=== PATIENT | female | born 1980 | race Two or more races ===

== ENCOUNTER 2021-01-26 22:00 | Emergency (ER) | payer MEDICAID ==
[2021-01-26 22:35] LABS: RAPID STREP SCREEN Negative (Negative)
--- NOTE | 2021-01-26 23:19 | ED Physician Documentation ---
PD HPI URI - Stated complaint Stated Complaint: TIGHTNESS IN THROAT/wrist injury - Chief complaint Chief Complaint: Heent - History obtained from History obtained from: Patient - History of Present Illness Timing - onset: Today Timing duration: Days (1) Timing details: Abrupt onset, Still present Associated symptoms: Chills, Nasal congestion, Dry cough, Dyspnea. No: Sore throat (but feeling of irritation in throat.) Contributing factors: Unimmunized. No: Sick contact, Travel, Immunocompromised Similar symptoms before: Has not had sx before Recently seen: Not recently seen Review of Systems Constitutional: reports: Chills. denies: Fever Nose: reports: Congestion. denies: Rhinorrhea / runny nose Cardiac: denies: Chest pain / pressure Respiratory: reports: Dyspnea, Cough GI: denies: Nausea, Vomiting, Diarrhea Skin: denies: Rash, Lesions Musculoskeletal: reports: Other (thumb base pain for a month or more are twisting injury sliping on stairs. 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 - Present Medications Home Medications: Ambulatory Orders Medication Instructions Recorded Confirmed Albuterol Sulfate [Proair Hfa 1 - 2 puffs INH Q4H PRN 01/26/21 01/26/21 Inhaler] dexAMETHasone [Decadron] 4 mg PO DAILY #5 tablet 01/26/21 - Allergies Allergies/Adverse Reactions: Allergies Allergy/AdvReac Type Severity Reaction Status Date / Time No Known Drug Allergies Allergy Verified 01/26/21 22:19 - Social History Does the pt smoke?: Yes Smoking Status: Current every day smoker Does the pt drink ETOH?: No Does the pt have substance abuse?: No - Immunizations Immunizations are current?: Yes - POLST Patient has POLST: No PD ED PE NORMAL - Vitals Vital signs reviewed: Yes - General General: Alert and oriented X 3, No acute distress, Well developed/nourished - HEENT HEENT: Moist mucous membranes, Pharynx benign (no redness but with mild swelling of uvula. No exudate. ) - Neck Neck: Supple, no meningeal sign, No adenopathy - Cardiac Cardiac: RRR, No murmur - Respiratory Respiratory: Clear bilaterally - Abdomen Abdomen: Soft, Non tender - Derm Derm: Normal color, Warm and dry, No rash - Neuro Neuro: Alert and oriented X 3, Normal speech Results - Vitals Vitals: Oxygen O2 Source Room air - Labs Labs: Microbiology 01/26/21 22:23 Group A Strep Throat Culture - Final Throat MIXED OROPHARYNGEAL LEYDA PRESENT. NO BETA STREP PRESENT IN CULTURE. Laboratory Tests 01/26/21 22:23 Group A Strep Rapid Negative - Rads (name of study) thumb Radiology: Prelim report reviewed (no fractures), See rad report PD MEDICAL DECISION MAKING - ED course Complexity details: reviewed results, considered differential, d/w patient Departure - Departure Disposition: Home, Self Care Clinical Impression: Thumb sprain Qualifiers: Encounter type: initial encounter Sprain of finger site: metacarpophalangeal joint Laterality: left Qualified Code(s): S63.642A - Sprain of metacarpophalangeal joint of left thumb, initial encounter Pharyngitis Qualifiers: Pharyngitis/tonsillitis etiology: unspecified etiology Qualified Code(s): J02.9 - Acute pharyngitis, unspecified Condition: Stable Record reviewed to determine appropriate education?: Yes Instructions: ED Pharyngitis Viral Report Pending, ED Sprain Finger Follow-Up: Martin Szymanski MD [Provider Admit Priv/Credential] - Prescriptions: dexAMETHasone [Decadron] 4 mg PO DAILY #5 tablet Comments: Your rapid strep test is negative. The throat culture will result in a day or 2 to evaluate for other bacterial causes than group A strep. We will call you if we need to add antibiotics based on the results. Otherwise presume a viral cause and we can treat the inflammation in the throat with some steroids daily for the next few days. Continue with some Benadryl periodically and liquid may help with some local effect in the throat as well as the antihistamine effect for congestion. Add Tylenol if needed for pains or Advil. For the thumb, use the thumb and wrist splint for the next 1 to 2 weeks. See if the mobility of it allows for better healing. The steroid anti-inflammatory may benefit the thumb as well as the throat over the next several days. Follow-up with orthopedics, Dr. Thomas, in about 1-1/2 weeks to see how much improved you got in with the splint and if any further treatment or diagnostics are needed. Call tomorrow for an appointment. Discharge Date/Time: 01/27/21 00:01
--- NOTE | 2021-01-26 23:23 | XRAY Report ---
PROCEDURE: Hand 3 View LT INDICATIONS: fall/injured L thumb/c/o pain TECHNIQUE: 3 views of the hand(s) acquired. COMPARISON: None FINDINGS: Bones: No fractures or dislocations. No suspicious bony lesions. Soft tissues: No suspicious soft tissue calcifications. IMPRESSION: Intact left hand. Specifically, no evidence of injury to the first digit. Reviewed by: Carmen Blake MD on 01/26/2021 11:21 PM PDT Approved by: Carmen Blake MD on 01/26/2021 11:21 PM PDT Station ID: [id number]
[2021-01-26] MEDS ORDERED: diphenhydrAMINE ELIXIR 25 MG/10 ML UDC PO STA (23:40)
[2021-01-26] MEDS ORDERED: CHERRY SYRUP 10 ML UDC PO ONE (23:40)
[2021-01-26] MEDS ORDERED: ACETAMINOPHEN 325 MG TABLET PO STA (23:40)
[2021-01-26] MEDS ORDERED: DEXAMETHASONE 10 MG/ML VIAL PO STA (23:40)
[2021-01-26 23:52] VITALS: BP 122/76
== END 2021-01-27 00:01 | disposition home or self-care (01) ==
LOC: ED 22:00
DX: S63.642A Sprain of metacarpophalangeal joint of left thumb, initial encounter (principal); W10.9XXA Fall (on) (from) unspecified stairs and steps, initial encounter; J02.9 Acute pharyngitis, unspecified; F17.200 Nicotine dependence, unspecified, uncomplicated
CPT/HCPCS: 73130; 87070; 87430; 99283; 99284; A9270

== ENCOUNTER 2021-02-11 12:48 | Emergency (ER) | payer MEDICAID ==
--- NOTE | 2021-02-11 13:18 | ED Physician Documentation ---
PD HPI ABD PAIN - Stated complaint Stated Complaint: SWALLOWED FB - Chief complaint Chief Complaint: General - History obtained from History obtained from: Patient - History of Present Illness Timing - onset: How many minutes ago (45), Today Timing - duration: Minutes (45) Timing - details: Abrupt onset, Now resolved (she had several small nails held i n her lips/mouth while hammering overhead. She opened her mouth unintendedly and the nails fell into her throat. She felt discomfort upper esophagus and coughed and spat some sputum. She thought had 3-4 nails in mouth and only noted one spat out. scratchy throat.) Quality: Sharp (feeling of sharp scratchy feeling in throat with swallowing.) Location: Other (upper esophagus area sharp with swallowing, improving. Also feeling of some epigastric aching feeling.) Radiation: No: Chest, Lower back, Upper back Worsened by: Other (swallowing saliva.) Associated symptoms: No: Fever, Nausea, Vomiting Similar symptoms before: Has not had sx before Recently seen: Not recently seen Review of Systems Constitutional: denies: Fever, Chills Nose: denies: Rhinorrhea / runny nose, Congestion Respiratory: denies: Cough GI: denies: Vomiting, Diarrhea Neurologic: denies: Generalized weakness, Near syncope PD PAST MEDICAL HISTORY - Past Medical History Past Medical History: Yes Cardiovascular: None Respiratory: Asthma Neuro: None Endocrine/Autoimmune: None - Past Surgical History 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, 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 - Present Medications Home Medications: Ambulatory Orders Medication Instructions Recorded Confirmed Albuterol Sulfate [Proair Hfa 1 - 2 puffs INH Q4H PRN 01/26/21 02/11/21 Inhaler] - Allergies Allergies/Adverse Reactions: Allergies Allergy/AdvReac Type Severity Reaction Status Date / Time No Known Drug Allergies Allergy Verified 02/11/21 13:02 - Social History Does the pt smoke?: Yes Smoking Status: Current every day smoker Does the pt drink ETOH?: No Does the pt have substance abuse?: No - Immunizations Immunizations are current?: Yes - POLST Patient has POLST: No PD ED PE NORMAL - Vitals Vital signs reviewed: Yes - General General: Alert and oriented X 3, No acute distress, Well developed/nourished - HEENT HEENT: Pharynx benign - Neck Neck: Supple, no meningeal sign, No adenopathy - Cardiac Cardiac: RRR, No murmur - Respiratory Respiratory: Clear bilaterally - Abdomen Abdomen: Soft, Non tender - Derm Derm: Normal color, Warm and dry - Neuro Neuro: Alert and oriented X 3, No motor deficit, Normal speech Results - Vitals Vitals: Vital Signs - 24 hr 02/11/21 02/11/21 12:58 14:39 Temperature 36.9 C 36.6 C Heart Rate 92 78 Respiratory 18 16 Rate Blood Pressure 141/71 H 117/79 O2 Saturation 99 99 Oxygen O2 Source Room air - Rads (name of study) chest xray (includes neck) Radiology: Prelim report reviewed (no FBs), See rad report abd xray Radiology: Prelim report reviewed (no FBs.), See rad report PD MEDICAL DECISION MAKING - ED course Complexity details: considered differential (No foreign body seen on chest or abdomen x-rays. She does not have symptoms enough to consider mediastinitis at this time. Caution for watching symptoms and to return.), d/w patient ED course: she thought she had swallowed 2-4 small nails, but did cough and have some gagging/sputum when she choked on them, so may have spat them out unknowingly. I think they would show up on xray readily. Departure - Departure Disposition: 01 Home, Self Care Clinical Impression: Abrasion of throat, initial encounter Condition: Stable Record reviewed to determine appropriate education?: Yes Instructions: ED Foreign Body Swallowed Adult Comments: There are not any obvious metallic foreign bodies on your chest or abdomen x- rays. Most likely explanation would be you would swallow them into the upper esophagus and then coughed or spat them back out as opposed to swallowing them. You could expect some irritation of the esophagus for a day or 2. Using an acids or Benadryl liquid or honey to help coat this area. Soft food for a day or 2. In the event there was a nail swallow that just is not visible on the x-rays, since it is not still seeming in the esophagus, swallowed foreign bodies including sharp objects like this typically through without event. Return if your esophagus or throat are still bothered beyond a day or 2 or gets worse. Also return if you have general abdominal pain, distention, bloody stool, vomiting or other concerns. Discharge Date/Time: 02/11/21 14:40
[2021-02-11] MEDS ORDERED: LIDOCAINE VISCOUS 2% 15 ML UDC MM STA (13:28)
[2021-02-11] MEDS ORDERED: MAG HYDROX/AL HYDROX/SIMETH 30 ML UDC PO STA (13:28)
--- NOTE | 2021-02-11 14:11 | XRAY Report ---
PROCEDURE: Chest 2 View X-Ray INDICATIONS: accidentally swallowed 3-4 small nails TECHNIQUE: 2 view(s) of the chest. COMPARISON: None. FINDINGS: Surgical changes and devices: None. Lungs and pleura: No pleural effusions or pneumothorax. Lungs are clear. Mediastinum: Mediastinal contours are normal. Heart size is normal. Bones and chest wall: No suspicious bony abnormalities. Soft tissues appear unremarkable. IMPRESSION: No radiopaque foreign body. No acute cardiopulmonary findings Reviewed by: Fareed Cooley MD on 02/11/2021 1:10 PM [facility] Approved by: Fareed Cooley MD on 02/11/2021 1:10 PM [facility] Station ID: [id number]
--- NOTE | 2021-02-11 14:15 | XRAY Report ---
PROCEDURE: Abdomen 1 View X-Ray INDICATIONS: swallowed small nails by accident TECHNIQUE: 1 view of the abdomen were acquired. COMPARISON: None FINDINGS: Surgical changes and devices: None. Bowel: No pneumoperitoneum. The bowel gas pattern is normal. Soft tissues: No masses; visualized solid organ contours appear normal in size. No suspicious abdom inal calcifications. Bones: No suspicious bony abnormalities. IMPRESSION: Nonobstructive bowel gas pattern without radiopaque foreign body Moderate fecal debris throughout the colon Reviewed by: Fareed Cooley MD on 02/11/2021 1:14 PM [place] Approved by: Fareed Cooley MD on 02/11/2021 1:14 PM [place] Station ID: [id number]
[2021-02-11] MEDS ORDERED: DOCUSATE SODIUM 100 MG CAPSULE PO STA (14:18)
[2021-02-11 14:41] VITALS: BP 117/79
== END 2021-02-11 14:40 | disposition home or self-care (01) ==
LOC: ED 12:48
DX: S10.11XA Abrasion of throat, initial encounter (principal); T17.298A Other foreign object in pharynx causing other injury, initial encounter; X58.XXXA Exposure to other specified factors, initial encounter; J45.909 Unspecified asthma, uncomplicated; F17.200 Nicotine dependence, unspecified, uncomplicated
CPT/HCPCS: 71046; 74018; 99282; 99283; A9270